=== PATIENT | female | born 1990 | race Caucasian/White ===

== ENCOUNTER 2022-01-09 22:17 | Emergency (ER) | payer SELFPAY ==
[~2022-01-09] VITALS: Ht 182.9 cm; Wt 159.1 kg
[2022-01-09 23:18] LABS: BASO % 0.2 % (0.0-2.0); EOS # 0.1 K/mm3 (0.0-0.7); EOS % 0.3 % (0.0-4.0); GRAN # 12.2 K/mm3 (1.4-6.5); GRAN % 83.5 % (42.2-75.2); HEMATOCRIT 38.2 % (37.0-47.0); HEMOGLOBIN 12.4 g/dl (12.5-16.0); LYMPH # 1.7 K/mm3 (1.2-3.4); LYMPH % 11.8 % (20.0-51.0); MEAN CELL VOLUME 81 fl (80.0-100.0); MEAN CORPUSCULAR HEMOGLOBIN 26 pg (27-31); MEAN CORPUSCULAR HGB CONC 33 g/dl (33.0-37.0); MEAN PLATELET VOLUME 11.5 fl (7.4-10.4); MONO # 0.5 K/mm3 (0.1-0.6); MONO % 3.7 % (1.7-9.3); PLATELET COUNT 396 K/mm3 (130-400); RED BLOOD COUNT 4.71 M/mm3 (4.10-5.30); REDCELL DISTRIBUTION WIDTH-CV 14.6 % (11.5-14.5)
[2022-01-09 23:25] LABS: INR 1.2 (0.8-3.0); PROTHROMBIN TIME 13.7 SECONDS (9.7-12.8)
[2022-01-09 23:34] LABS: BILIRUBIN,TOTAL 0.5 mg/dL (0.2-1.2); C-REACTIVE PROTEIN 2.82 mg/dL (0.00-0.50); CREATININE, serum 0.82 mg/dL (0.57-1.11); POTASSIUM 4.2 mmol/L (3.5-4.5); TOTAL PROTEIN 8.6 gm/dL (6.2-8.1)
[2022-01-10 02:21] VITALS: TEMP 97.5
[2022-01-10 03:00] VITALS: BP 151/80; PULSE 82
[2022-01-10] MEDS ORDERED: LAMISIL250 M1 (03:18)
[2022-01-10] MEDS ORDERED: WELLBUTRIN SR200 MG (03:18)
[2022-01-10] MEDS ORDERED: DESYREL 100MG100 MG (03:22)
== END 2022-01-10 03:38 | disposition home or self-care (01) ==
LOC: COL.ER 22:17
PROVIDERS: Family Medicine
DX: G43.909 Migraine, unspecified, not intractable, without status migrainosus (principal); Z88.5 Allergy status to narcotic agent
CPT/HCPCS: J0780; J1200; J1790; J3010; J7120; Q9967